=== PATIENT | female | born 1990 | race Two or more races ===

== ENCOUNTER → 2022-03-13 | Outpatient (CLI) | payer MEDICAID | LOC: M WHC 15:08 | PROVIDERS: ATTEND Obstetrics & Gynecology | DX: Z34.82 Encounter for supervision of other normal pregnancy, second trimester (principal) ==

== ENCOUNTER → 2022-04-25 | Outpatient (CLI) | payer OTHER ==
[2022-04-25 13:52] LABS: HEMATOCRIT 36.2 % (36.0-47.0); HEMOGLOBIN 11.9 g/dl (12.0-15.5); MEAN CORPUSCULAR HEMOGLOBIN 30.7 pg (27.0-33.0); MEAN CORPUSCULAR HGB CONC 32.9 g/dl (32.0-36.5); MEAN CORPUSCULAR VOLUME 93.3 fl (80.0-96.0); PLATELET COUNT, AUTOMATED 232 10^3/uL (150-450); RED BLOOD COUNT 3.88 10^6/uL (4.00-5.40); WHITE BLOOD COUNT 13.8 10^3/uL (4.0-10.0)
[2022-04-25 15:09] LABS: GC DNA AMPLIFICATION NEGATIVE (NEGATIVE)
== END ==
LOC: M PLALAB 09:42
PROVIDERS: ATTEND Specialist
DX: Z34.82 Encounter for supervision of other normal pregnancy, second trimester (principal); Z3A.00 Weeks of gestation of pregnancy not specified

== ENCOUNTER → 2022-05-28 | Outpatient (CLI) | payer OTHER | LOC: M PLALAB 10:17 | PROVIDERS: ATTEND Advanced Practice Midwife | DX: Z34.93 Encounter for supervision of normal pregnancy, unspecified, third trimester (principal); Z3A.30 30 weeks gestation of pregnancy ==

== ENCOUNTER → 2022-06-19 | Outpatient (REF) | payer OTHER | LOC: M PLALAB 09:57 | PROVIDERS: ATTEND Advanced Practice Midwife | DX: Z36.85 Encounter for antenatal screening for Streptococcus B (principal); O99.343 Other mental disorders complicating pregnancy, third trimester ==

== ENCOUNTER 2022-07-13 23:04 | Inpatient (IN) | payer OTHER ==
[~2022-07-13] VITALS: Ht 162.6 cm; Wt 90.9 kg
[2022-07-13 23:21] VITALS: BP 129/80
[2022-07-14] VITALS (25 sets, daily range): BP systolic 91–139; BP diastolic 49–81
[2022-07-14] MEDS ORDERED: OXYTOCIN DRIP 30 UNITS in IV 1 EA IV PRN ×4 (00:15)
[2022-07-14] MEDS ORDERED: LIDOCAINE 1% MDV 20ML VIAL INFIL PRN (00:15)
[2022-07-14] MEDS ORDERED: TRANEXAMIC ACID INJection 1,000 MG in NS 100 ML IV PRN (00:15)
[2022-07-14] MEDS ORDERED: LR 1,000 ML IV SCH (00:45)
[2022-07-14] MEDS ORDERED: LR 1,000 ML IV ONE (00:45)
[2022-07-14 00:49] LABS: HEMATOCRIT 36.1 % (36.0-47.0); HEMOGLOBIN 11.8 g/dl (12.0-15.5); MEAN CORPUSCULAR HEMOGLOBIN 28.9 pg (27.0-33.0); MEAN CORPUSCULAR HGB CONC 32.7 g/dl (32.0-36.5); MEAN CORPUSCULAR VOLUME 88.5 fl (80.0-96.0); PLATELET COUNT, AUTOMATED 240 10^3/uL (150-450); RED BLOOD COUNT 4.08 10^6/uL (4.00-5.40); WHITE BLOOD COUNT 13.7 10^3/uL (4.0-10.0)
[2022-07-14] MEDS ORDERED: ONDANSETRON 4MG 2ML VIAL IV PRN (01:40)
[2022-07-14] MEDS ORDERED: diphenhydrAMINE 50MG/ML VIAL IV PRN (01:40)
[2022-07-14] MEDS ORDERED: NALOXONE INJ 0.4MG/1ML VIAL IV PRN (01:40)
[2022-07-14] MEDS ORDERED: EPIDURAL/PCA KEYS XX PRN (01:40)
[2022-07-14] MEDS ORDERED: ePHEDrine SULFATE 25 MG/5 ML(5MG/ML) SYRINGE IVP PRN (01:40)
[2022-07-14] MEDS ORDERED: LR 500 ML IV PRN (01:40)
[2022-07-14] MEDS ORDERED: FENTANYL/ROPIVACAINE/NACL BAG 100 ML EPIDURAL SCH (01:40)
[2022-07-14] MEDS ORDERED: OXYTOCIN DRIP 30 UNITS in IV 1 EA IV SCH ×2 (04:50→06:00)
[2022-07-14] MEDS ORDERED: MOM 30ML SUSPENSION UDC PO PRN (06:00)
[2022-07-14] MEDS ORDERED: IBUPROFEN 800 MG TAB PO PRN (06:00)
[2022-07-14] MEDS ORDERED: ANUSOL HC CREAM 30GM TOP PRN (06:00)
[2022-07-14] MEDS ORDERED: ACETAMINOPHEN TAB 650MG DOSE (2X325MG) PO PRN (06:00)
[2022-07-14] MEDS ORDERED: ACETAMINOPHEN 500 MG TAB PO PRN (06:00)
[2022-07-14] MEDS ORDERED: DIBUCAINE 1% OINTMENT 30GM TOP PRN (06:00)
[2022-07-14] MEDS ORDERED: DOCUSATE SODIUM 100MG CAPSULE PO PRN (06:00)
[2022-07-14] MEDS ORDERED: RHOGAM 300MCG (1500IU) INJ IM SCH (06:00)
[2022-07-14] MEDS ORDERED: IBUPROFEN 600MG TAB PO PRN (06:00)
[2022-07-14] MEDS ORDERED: METHYLERGONOVINE MALEATE 0.2 MG TAB PO PRN (06:00)
[2022-07-14] MEDS: PRENATAL VITAMINS CHEWABLE TABLET PO SCH (14:17)
[2022-07-14] MEDS ORDERED: SLF 3 ML SYR IV PRN (14:55)
[2022-07-14] MEDS ORDERED: PRENTAB9 PO (16:18)
[2022-07-14] MEDS ORDERED: HOME MED LIST COMPLETE! XX SCH (16:20)
[2022-07-14] MEDS: SLF 3 ML SYR IV SCH (22:34)
[2022-07-15] MEDS: SLF 3 ML SYR IV SCH (06:00)
[2022-07-15 06:15] VITALS: BP 124/78
[2022-07-15] MEDS: PRENATAL VITAMINS CHEWABLE TABLET PO SCH (08:50)
[2022-07-16] MEDS ORDERED: MEASLES,MUMPS,RUBELLA VACCINE INJ (MMR-II) SC.IMMUN ONE (09:00)
== END 2022-07-15 13:10 | disposition home or self-care (01) | DRG 560 ==
LOC: M LDO 23:04 → M LDI 07-14 → M OBS 07-14 08:10
PROVIDERS: ADMIT Obstetrics & Gynecology; ATTEND Obstetrics & Gynecology
PROC: 10E0XZZ Delivery of Products of Conception, External Approach (ICD-10-PCS; principal; 2022-07-14)
DX: O69.82X0 Labor and delivery complicated by other cord entanglement, without compression, not applicable or unspecified (principal); Z37.0 Single live birth; Z3A.39 39 weeks gestation of pregnancy